=== PATIENT | male | born 1965 | race African-American/Black ===

== ENCOUNTER 2017-03-22 17:02 | Emergency (ER) | payer OTHER ==
[2017-03-22 19:31] VITALS: BP 131/77
== END 2017-03-22 19:31 | disposition home or self-care (01) ==
LOC: ED 17:02
DX: J45.901 Unspecified asthma with (acute) exacerbation (principal); I10 Essential (primary) hypertension; E78.00 Pure hypercholesterolemia, unspecified
CPT/HCPCS: J7512; J7613; J7644